=== PATIENT | female | born 1945 | race Caucasian/White ===

== ENCOUNTER 2017-05-30 17:17 | Emergency (ER) | payer OTHER ==
[~2017-05-30] VITALS: Ht 154.9 cm; Wt 76.2 kg
[~2017-05-30 17:17] MED LIST: ACTOS15 MG PO; ADVAIR 2501 DISK W/1 IH; GLIPIZIDE5 MG PO; SIMVASTATIN20 MG PO; SINGULAIR5 MG PO; ULTRAM50 MG PO
[2017-05-30] MEDS ORDERED: JANUMET 50-1,01 EACH (17:43)
[2017-05-30] MEDS ORDERED: GLIMEPIRIDE4 MG (17:44)
[2017-05-30] MEDS ORDERED: ASPIR 8181 MG (17:45)
== END 2017-05-30 20:52 | disposition home or self-care (01) ==
LOC: ER 17:17 → EDBD 17:39 → ER 20:52
DX: M62.838 Other muscle spasm (principal); G62.9 Polyneuropathy, unspecified; M54.5 Low back pain; M54.2 Cervicalgia

== ENCOUNTER 2017-12-19 14:33 | Emergency (ER) | payer OTHER ==
[~2017-12-19] VITALS: Ht 154.9 cm; Wt 76.2 kg
[~2017-12-19 14:33] MED LIST changes: +ASPIR 8181 MG; +GLIMEPIRIDE4 MG; +JANUMET 50-1,01 EACH
== END 2017-12-19 20:25 | disposition home or self-care (01) ==
LOC: ER 14:33
DX: R42 Dizziness and giddiness (principal); D16.4 Benign neoplasm of bones of skull and face